=== PATIENT | female | born 1990 | race Caucasian/White ===

== ENCOUNTER 2016-08-28 20:22 | Emergency (ER) | payer BC ==
[~2016-08-28] VITALS: Ht 165.1 cm; Wt 59.0 kg
[~2016-08-28 20:22] MED LIST: ANAPROX DS550 MG PO; ANUSOL-HC25 MG RC; ATARAX25 MG PO; BENADRYL50 MG PO; COLACE100 MG PO; DIFLUCAN150 MG PO; IRON325 M1 PO; KENALOG0.1% TP; MACROBID100 M1 PO; MACRODANTIN100 MG PO; MOTRIN800 MG PO; NKHM; PERCOCET 325 MG1 TA2 PO; PYRIDIUM100 MG PO; SEPTRA DS 800 M1 TAB PO; TRAMADOL HCL50 MG PO; ZITHROMAX Z PA250 MG PO; ZITHROMAX250 MG PO; ZOFRAN ODT4 MG SL; [UNRECOGNIZED DRUG - OTHER] PO
[2016-08-28 21:10] LABS: BILIRUBIN NEGATIVE (NEGATIVE); BLOOD NEGATIVE (NEGATIVE); CLARITY CLOUDY (CLEAR); COLOR YELLOW (YELLOW); GLUCOSE NEGATIVE (NEGATIVE); KETONE NEGATIVE (NEGATIVE); LEUKO ESTERASE NEGATIVE (NEGATIVE); NITRITE NEGATIVE (NEGATIVE); PROTEIN TRACE (NEGATIVE); SPECIFIC GRAVITY 1.015 (1.005-1.030)
[2016-08-28 21:30] LABS: BACTERIA TRACE; URINE REFLEX COMMENT YES (NO); WBC 0-2 wbc/hpf (0-5)
== END 2016-08-28 21:43 | disposition home or self-care (01) ==
LOC: ED 20:22
PROVIDERS: Nurse Practitioner Family
DX: M54.5 Low back pain (principal); R35.0 Frequency of micturition; F17.200 Nicotine dependence, unspecified, uncomplicated; Z88.1 Allergy status to other antibiotic agents

== ENCOUNTER 2017-02-19 19:57 | Emergency (ER) | payer OTHER ==
[~2017-02-19] VITALS: Ht 172.7 cm; Wt 63.5 kg
[2017-02-19] MEDS ORDERED: NAPROSYN500 MG PO (22:13)
== END 2017-02-19 22:20 | disposition home or self-care (01) ==
LOC: ED 19:57
DX: S40.012A Contusion of left shoulder, initial encounter (principal); M54.9 Dorsalgia, unspecified; F17.200 Nicotine dependence, unspecified, uncomplicated; Z88.2 Allergy status to sulfonamides; Z88.8 Allergy status to other drugs, medicaments and biological substances; Y08.89XA Assault by other specified means, initial encounter; Y93.89 Activity, other specified; Y92.89 Other specified places as the place of occurrence of the external cause; Y99.8 Other external cause status

== ENCOUNTER 2017-04-04 23:25 | Emergency (ER) | payer OTHER ==
[~2017-04-04] VITALS: Ht 167.6 cm; Wt 59.0 kg
[~2017-04-04 23:25] MED LIST changes: +NAPROSYN500 MG PO
[2017-04-04 23:54] LABS: BILIRUBIN NEGATIVE (NEGATIVE); BLOOD NEGATIVE (NEGATIVE); CLARITY SL CLOUDY (CLEAR); COLOR YELLOW (YELLOW); GLUCOSE NEGATIVE (NEGATIVE); KETONE NEGATIVE (NEGATIVE); LEUKO ESTERASE TRACE (NEGATIVE); NITRITE NEGATIVE (NEGATIVE); SPECIFIC GRAVITY 1.015 (1.005-1.030); UROBILINOGEN 0.2 E.U./dl (0.2-1.0)
== END 2017-04-05 01:00 | disposition home or self-care (01) ==
LOC: ED 23:25
PROVIDERS: Physician Assistant
DX: B37.49 Other urogenital candidiasis (principal); F17.200 Nicotine dependence, unspecified, uncomplicated; Z88.1 Allergy status to other antibiotic agents

== ENCOUNTER 2017-09-25 23:30 | Emergency (ER) | payer OTHER ==
[~2017-09-25] VITALS: Ht 165.1 cm; Wt 63.5 kg
[2017-09-25 23:49] LABS: BILIRUBIN NEGATIVE (NEGATIVE); BLOOD NEGATIVE (NEGATIVE); CLARITY SL CLOUDY (CLEAR); COLOR YELLOW (YELLOW); GLUCOSE NEGATIVE (NEGATIVE); KETONE NEGATIVE (NEGATIVE); LEUKO ESTERASE 1+ (NEGATIVE); NITRITE NEGATIVE (NEGATIVE); SPECIFIC GRAVITY 1.015 (1.005-1.030); UROBILINOGEN 0.2 E.U./dl (0.2-1.0)
[2017-09-25 23:58] LABS: BACTERIA 3+; EPITHELIAL CELLS 30-35
[2017-09-26] MEDS ORDERED: MACROBID100 M1 PO (00:15)
== END 2017-09-26 00:34 | disposition home or self-care (01) ==
LOC: ED 23:30
PROVIDERS: Physician Assistant
DX: N39.0 Urinary tract infection, site not specified (principal); F17.200 Nicotine dependence, unspecified, uncomplicated; Z88.1 Allergy status to other antibiotic agents

== ENCOUNTER 2017-10-05 04:11 | Inpatient (IN) | payer OTHER ==
[2017-10-05] VITALS (7 sets, daily range): BP systolic 92–114; BP diastolic 48–82
[~2017-10-05] VITALS: Ht 165.1 cm; Wt 68.9 kg
[2017-10-05 04:55] LABS: BASO % 0.3 % (0.0-1.0); EOS # 0.1 10*3/uL (0.0-0.4); EOS % 2.3 % (1.0-4.0); HEMATOCRIT 42.1 % (37.0-47.0); LYMPH # 2.8 10*3/uL (1.3-4.4); LYMPH % 45.8 % (27.0-41.0); MEAN CELL VOLUME 87.3 fl (81.0-99.0); MEAN CORPUSCULAR HGB CONC 33.3 g/dl (33.0-37.0); MEAN PLATELET VOLUME 10.2 fl (9.6-12.3); MONO # 0.4 10*3/uL (0.1-1.0); NEUT # 2.7 10*3/uL (2.3-7.9); NEUT % 45.4 % (47.0-73.0); PLATELET COUNT AUTOMATED 222 10*3/uL (130-400); RED BLOOD COUNT 4.82 10*6/uL (4.10-5.10); RED CELL DISTRI WIDTH 11.9 % (0-14.5)
[2017-10-05 05:10] LABS: ALBUMIN 3.8 gm/dl (3.1-4.5); ALKALINE PHOSPHATASE 66 U/L (45-117); BUN 11 mg/dl (7-24); CHLORIDE 106 mmol/L (98-107); CREATININE 0.75 mg/dL (0.55-1.02); LIPASE 87 U/L (73-393); POTASSIUM 3.7 mmol/L (3.5-5.1); SGOT/AST 14 IU/L (3-35); SGPT/ALT 19 U/L (12-78); SODIUM 140 mmol/L (136-145); TOTAL PROTEIN 7.2 gm/dL (6.4-8.2)
[2017-10-05 05:13] LABS: BETA-HCG, QUANT < 1.0 mIU/mL (1-3)
[2017-10-05 05:38] LABS: BILIRUBIN NEGATIVE (NEGATIVE); BLOOD NEGATIVE (NEGATIVE); CLARITY SL CLOUDY (CLEAR); COLOR YELLOW (YELLOW); GLUCOSE NEGATIVE (NEGATIVE); KETONE NEGATIVE (NEGATIVE); LEUKO ESTERASE NEGATIVE (NEGATIVE); NITRITE NEGATIVE (NEGATIVE); SPECIFIC GRAVITY 1.025 (1.005-1.030); UROBILINOGEN 0.2 E.U./dl (0.2-1.0)
[2017-10-05 05:45] LABS: EPITHELIAL CELLS 25-30; MUCOUS 1+
[2017-10-06] VITALS: BP 107/51
[2017-10-06 08:00] VITALS: BP 86/42
[2017-10-06 08:16] LABS: ACT PARTIAL THROMBO TIME 25.1 SECONDS (20.8-31.5); BASO % 0.5 % (0.0-1.0); EOS # 0.1 10*3/uL (0.0-0.4); EOS % 2.6 % (1.0-4.0); HEMOGLOBIN 12.1 g/dl (12.0-16.0); LYMPH # 1.8 10*3/uL (1.3-4.4); MEAN CORPUSCULAR HGB 29.8 pg (27.0-31.0); MEAN CORPUSCULAR HGB CONC 32.7 g/dl (33.0-37.0); MEAN PLATELET VOLUME 10.6 fl (9.6-12.3); MONO # 0.3 10*3/uL (0.1-1.0); NEUT # 1.9 10*3/uL (2.3-7.9); NEUT % 46.7 % (47.0-73.0); PLATELET COUNT AUTOMATED 176 10*3/uL (130-400); RED BLOOD COUNT 4.06 10*6/uL (4.10-5.10); WHITE BLOOD COUNT 4.2 10*3/uL (4.8-10.8)
[2017-10-06 08:17] LABS: MEAN CELL VOLUME 91.1 fl (81.0-99.0)
[2017-10-06 08:28] LABS: ALBUMIN 3.3 gm/dl (3.1-4.5); BUN 9 mg/dl (7-24); CHLORIDE 111 mmol/L (98-107); CHOLESTEROL 105 mg/dL (<200); POTASSIUM 3.9 mmol/L (3.5-5.1); SGOT/AST 11 IU/L (3-35); SGPT/ALT 15 U/L (12-78); SODIUM 143 mmol/L (136-145); TOTAL PROTEIN 5.8 gm/dL (6.4-8.2); TRIGLYCERIDES 43 mg/dl (<150); VLDL CHOLESTEROL 9 mg/dL (6-40)
[2017-10-06 08:34] LABS: ALKALINE PHOSPHATASE 55 U/L (45-117); HDL CHOLESTEROL 37 mg/dl (40-60); LDL CHOLESTEROL 59 mg/dL (9-159); PHOSPHOROUS 2.3 mg/dL (2.5-4.9); THYROID STIM HORMONE (HS) 0.723 uIU/ml (0.358-4.75)
[2017-10-06 09:29] LABS: VITAMIN D, 25-HYDROXY 29.6 ng/mL (30-100)
[2017-10-06 12:00] VITALS: BP 95/61
[2017-10-06 16:00] VITALS: BP 104/69
[2017-10-06 20:00] VITALS: BP 96/68
[2017-10-07] VITALS: BP 100/65
[2017-10-07 08:00] VITALS: BP 108/64
== END 2017-10-07 10:20 | disposition home or self-care (01) | DRG 446 ==
LOC: ED 04:11 → 4E 06:31 → EDHOLD 06:31 → 5E 06:47 → 4E 07:26
PROVIDERS: Internal Medicine; Student in an Organized Health Care Education/Training Program
DX: K82.9 Disease of gallbladder, unspecified (principal); F17.210 Nicotine dependence, cigarettes, uncomplicated; R10.11 Right upper quadrant pain; R00.0 Tachycardia, unspecified; Z71.6 Tobacco abuse counseling; Z88.1 Allergy status to other antibiotic agents

== ENCOUNTER 2017-11-28 16:03 | Emergency (ER) | payer OTHER ==
[~2017-11-28] VITALS: Ht 165.1 cm; Wt 63.5 kg
[2017-11-28] MEDS ORDERED: PREDNISONE50 MG PO (16:37)
[2017-11-28] MEDS ORDERED: NAPROSYN500 MG PO (16:37)
[2017-11-28] MEDS ORDERED: CYCLOBENZAPRINE10 MG PO (16:37)
== END 2017-11-28 18:19 | disposition home or self-care (01) ==
LOC: ED 16:03
DX: S39.012A Strain of muscle, fascia and tendon of lower back, initial encounter (principal); S70.01XA Contusion of right hip, initial encounter; S80.01XA Contusion of right knee, initial encounter; M54.16 Radiculopathy, lumbar region; F17.200 Nicotine dependence, unspecified, uncomplicated; Z88.2 Allergy status to sulfonamides; Z88.1 Allergy status to other antibiotic agents; W17.81XA Fall down embankment (hill), initial encounter; Y93.A6 Activity, grass drills; Y92.828 Other wilderness area as the place of occurrence of the external cause; Y99.8 Other external cause status

== ENCOUNTER → 2018-05-23 | Outpatient (CLI) | payer OTHER ==
[~2018-05-23] MED LIST changes: +ABILIFY5 MG PO; +CLONAZEPAM0.5 M2 PO; +CYCLOBENZAPRINE10 MG PO; +PREDNISONE50 MG PO
[2018-05-23 10:08] LABS: BASO % 0.6 % (0.0-1.0); EOS # 0.1 10*3/uL (0.0-0.4); EOS % 1.8 % (1.0-4.0); HEMATOCRIT 42.2 % (37.0-47.0); HEMOGLOBIN 14.3 g/dl (12.0-16.0); LYMPH # 1.8 10*3/uL (1.3-4.4); LYMPH % 37.1 % (27.0-41.0); MEAN CELL VOLUME 86.7 fl (81.0-99.0); MEAN CORPUSCULAR HGB 29.4 pg (27.0-31.0); MEAN CORPUSCULAR HGB CONC 33.9 g/dl (33.0-37.0); MEAN PLATELET VOLUME 10.1 fl (9.6-12.3); MONO # 0.4 10*3/uL (0.1-1.0); MONO % 7.1 % (3.0-9.0); NEUT # 2.6 10*3/uL (2.3-7.9); NEUT % 53.2 % (47.0-73.0); PLATELET COUNT AUTOMATED 254 10*3/uL (130-400); RED BLOOD COUNT 4.87 10*6/uL (4.10-5.10); RED CELL DISTRI WIDTH 12.3 % (0-14.5); WHITE BLOOD COUNT 4.9 10*3/uL (4.8-10.8)
[2018-05-23 10:31] LABS: ALBUMIN 3.7 gm/dl (3.1-4.5); BUN 8 mg/dl (7-24); CHLORIDE 107 mmol/L (98-107); CHOLESTEROL 125 mg/dL (<200); CREATININE 0.83 mg/dL (0.55-1.02); SGOT/AST 4 IU/L (3-35); SGPT/ALT 16 U/L (12-78); SODIUM 141 mmol/L (136-145); TOTAL PROTEIN 7.1 gm/dL (6.4-8.2); TRIGLYCERIDES 66 mg/dl (<150); VLDL CHOLESTEROL 13 mg/dL (6-40)
[2018-05-23 10:40] LABS: ALKALINE PHOSPHATASE 73 U/L (45-117); HDL CHOLESTEROL 48 mg/dl (40-60); LDL CHOLESTEROL 64 mg/dL (9-159); THYROID STIM HORMONE (HS) 0.726 uIU/ml (0.358-4.75)
== END ==
LOC: LAB 09:43
PROVIDERS: Registered Nurse Psychiatric/Mental Health
DX: F41.1 Generalized anxiety disorder (principal)

== ENCOUNTER → 2018-05-25 | Outpatient (CLI) | payer OTHER | END | disposition home or self-care (01) | LOC: LAB 11:01 | DX: Z32.02 Encounter for pregnancy test, result negative (principal) ==

== ENCOUNTER 2018-12-05 10:05 | Emergency (ER) | payer OTHER ==
[~2018-12-05] VITALS: Ht 165.1 cm; Wt 63.5 kg
[2018-12-05] MEDS ORDERED: LIDEX 0.05% CRE15 GM T (10:23)
[2018-12-05] MEDS ORDERED: MEDROL DOSEPAK4 MG PO (10:23)
== END 2018-12-05 10:30 | disposition home or self-care (01) ==
LOC: ED 10:05
DX: L25.9 Unspecified contact dermatitis, unspecified cause (principal); F17.210 Nicotine dependence, cigarettes, uncomplicated; Z88.1 Allergy status to other antibiotic agents; Z88.2 Allergy status to sulfonamides; Z79.899 Other long term (current) drug therapy

== ENCOUNTER → 2019-11-29 | Outpatient (CLI) | payer OTHER ==
[~2019-11-29] MED LIST changes: +LIDEX 0.05% CRE15 GM T; +MEDROL DOSEPAK4 MG PO
== END | disposition home or self-care (01) ==
LOC: US 14:13
PROVIDERS: ATTEND Nurse Practitioner Women's Health
DX: T83.32XA Displacement of intrauterine contraceptive device, initial encounter (principal)

== ENCOUNTER → 2020-06-24 | Outpatient (CLI) | payer OTHER | END | disposition home or self-care (01) | LOC: US 10:30 | PROVIDERS: ATTEND Nurse Practitioner Women's Health | DX: O20.9 Hemorrhage in early pregnancy, unspecified (principal); Z3A.12 12 weeks gestation of pregnancy ==

== ENCOUNTER 2020-07-22 00:19 | Emergency (ER) | payer OTHER ==
[~2020-07-22] VITALS: Wt 72.6 kg
[2020-07-22 01:18] LABS: BILIRUBIN Negative (Negative); BLOOD 3+ (Negative); CLARITY Clear (Clear); COLOR Yellow (Yellow); GLUCOSE Negative (Negative); KETONE Trace (Negative); LEUKO ESTERASE Negative (Negative); NITRITE Negative (Negative); PH 5.5 (4.5-8.0); SPECIFIC GRAVITY 1.025 (1.001-1.030); UROBILINOGEN 0.2 E.U./dl (0.0-1.0)
[2020-07-22 01:56] LABS: BACTERIA 1+; RBC 51-100 rbc/hpf (0-2)
[2020-07-22] MEDS ORDERED: MACROBID100 M1 PO (09:32)
== END 2020-07-22 10:00 | disposition home or self-care (01) ==
LOC: ED 00:19
PROVIDERS: Emergency Medicine
DX: O23.42 Unspecified infection of urinary tract in pregnancy, second trimester (principal); Z88.8 Allergy status to other drugs, medicaments and biological substances; Z79.899 Other long term (current) drug therapy; Z3A.16 16 weeks gestation of pregnancy

== ENCOUNTER → 2020-08-20 | Outpatient (CLI) | payer OTHER | END | disposition home or self-care (01) | LOC: US 12:49 | PROVIDERS: ATTEND Obstetrics & Gynecology | DX: O32.1XX0 Maternal care for breech presentation, not applicable or unspecified (principal); Z3A.20 20 weeks gestation of pregnancy ==

== ENCOUNTER → 2020-10-01 | Outpatient (CLI) | payer OTHER | END | disposition home or self-care (01) | LOC: US 11:01 | PROVIDERS: ATTEND Nurse Practitioner Women's Health | DX: O32.1XX0 Maternal care for breech presentation, not applicable or unspecified (principal); O43.102 Malformation of placenta, unspecified, second trimester; Z3A.26 26 weeks gestation of pregnancy ==

== ENCOUNTER → 2020-10-31 | Outpatient (CLI) | payer OTHER | END | disposition home or self-care (01) | LOC: US 10-30 10:00 | PROVIDERS: ATTEND Nurse Practitioner Women's Health | DX: O42.913 Preterm premature rupture of membranes, unspecified as to length of time between rupture and onset of labor, third trimester (principal); Z3A.30 30 weeks gestation of pregnancy ==

== ENCOUNTER → 2024-07-15 | Outpatient (CLI) | payer OTHER | END | disposition home or self-care (01) | LOC: CARD 10:13 | DX: Z79.899 Other long term (current) drug therapy (principal) ==